=== PATIENT | male | born 1955 | race Caucasian/White ===

== ENCOUNTER 2021-08-22 16:26 | Emergency (ER) | payer OTHER | END 2021-08-22 18:56 | disposition home or self-care (01) | LOC: FER 16:26 | DX: S60.551A Superficial foreign body of right hand, initial encounter (principal); I10 Essential (primary) hypertension; Z87.891 Personal history of nicotine dependence; W45.8XXA Other foreign body or object entering through skin, initial encounter | CPT/HCPCS: 73130 ==